=== PATIENT | female | born 1955 | race Caucasian/White ===

== ENCOUNTER 2021-04-24 20:57 | Inpatient (IN) | payer MEDICARE ==
[~2021-04-24] VITALS: Ht 162.6 cm; Wt 111.6 kg
[2021-04-24 20:59] VITALS: BP 110/57
[2021-04-24 22:09] LABS: CALCIUM 8.9 mg/dL (8.5-10.1); CREATININE 1.7 mg/dL (0.6-1.3); POTASSIUM 3.6 mmol/L (3.5-5.1)
[2021-04-24 22:13] LABS: MPV 8.3 fl. (7.2-11.1)
[2021-04-24 22:14] LABS: ALBUMIN 2.8 g/dL (3.4-5.0); MAGNESIUM 1.5 mg/dL (1.8-2.4); TOTAL BILIRUBIN 0.7 mg/dL (<0.1-1.0); TOTAL PROTEIN 6.5 g/dL (6.4-8.2)
[2021-04-24 22:15] LABS: HEMATOCRIT 34.1 % (37.0-47.0); HEMOGLOBIN 11.8 gm/dL (12.0-15.0); MCH 34.6 pg (26.0-34.0); MCHC 34.5 g/dL (28.0-37.0); MCV 100.2 fL (80.0-100.0); NUCLEATED RBCS 4 /100WBC; RDW-CV 19.5 % (10.5-14.5)
[2021-04-24 22:18] LABS: PLATELET COUNT* 45 thou/uL (150-400); WBC 0.6 thou/uL (4.0-11.0)
[2021-04-24 22:44] LABS: URINE BILIRUBIN NEGATIVE (Negative); URINE BLOOD 1+ (Negative); URINE CLARITY CLEAR; URINE COLOR YELLOW; URINE GLUCOSE-RANDOM 1+ (Negative); URINE KETONES NEGATIVE (Negative); URINE LEUKOCYTES-REFLEX NEGATIVE (Negative); URINE NITRITE-REFLEX NEGATIVE (Negative); URINE PROTEIN 2+ (Negative); URINE UROBILINOGEN 0.2 E.U./dl (0.2-1.0)
[2021-04-24 23:01] LABS: BACTERIA-REFLEX >30 Many /HPF (None Seen); TRANSITIONAL EPITHEL CELL 0-3 Few /LPF (None Seen); URINE WBC-REFLEX 6-15 Few /HPF (0-5)
[2021-04-24] MEDS ORDERED: ACYCLOVIR 200200 MG PO (23:02)
[2021-04-24 23:03] LABS: CASTS None Seen /LPF (None Seen); CRYSTALS None Seen /LPF (None Seen); MUCUS 0-3 Light strn/LPF (None Seen); SQUAMOUS >10 Many /LPF (0-3)
[2021-04-24] MEDS ORDERED: CENTRUM SILVER1 EAC6 PO (23:03)
[2021-04-24] MEDS ORDERED: VITAMIN B-121000 MC2 PO (23:03)
[2021-04-24] MEDS ORDERED: CARVEDILOL12.5 MG PO (23:03)
[2021-04-24] MEDS ORDERED: INQOVI 35 MG-11 EACH PO (23:04)
[2021-04-24] MEDS ORDERED: ZETIA10 MG PO (23:05)
[2021-04-24] MEDS ORDERED: FOLIC ACID1 MG PO (23:06)
[2021-04-24] MEDS ORDERED: NORCO 10-325 T1 EACH PO (23:06)
[2021-04-24] MEDS ORDERED: NEURONTIN 300M300 M2 PO (23:06)
[2021-04-24] MEDS ORDERED: BASAGLAR K100 UNIT/1 SUBQ (23:07)
[2021-04-24] MEDS ORDERED: JANUVIA25 MG PO (23:08)
[2021-04-24] MEDS ORDERED: LEVOFLOXACIN500 MG PO (23:08)
[2021-04-24] MEDS ORDERED: NITROSTAT0.4 M1 SUBLING (23:09)
[2021-04-24] MEDS ORDERED: LIDODERM1 EACH TRANSDERM (23:09)
[2021-04-24] MEDS ORDERED: RAYOS5 MG PO (23:10)
[2021-04-24] MEDS ORDERED: PROTONIX40 M2 PO (23:10)
[2021-04-24] MEDS ORDERED: COMPAZINE10 MG PO (23:10)
[2021-04-24] MEDS ORDERED: ONDANSETRON ODT8 MG PO (23:10)
[2021-04-24] MEDS ORDERED: VITAMIN D31250 MC1 PO (23:11)
[2021-04-24] MEDS ORDERED: CRESTOR40 MG PO (23:11)
[2021-04-25 03:38] VITALS: BP 97/30
[2021-04-25 03:45] LABS: ABSOLUTE LYMPHOCYTES 0.6 thou/uL (0.8-5.3); ATYPICAL LYMPHS 2 %; PLATELET ESTIMATE DECREASED
[2021-04-25 03:46] LABS: ANISOCYTOSIS Occasional; CLUMPED PLTS FEW; POIKILOCYTOSIS Occasional
[2021-04-25 07:00] VITALS: BP 88/52
[2021-04-25 11:00] VITALS: BP 125/51
--- NOTE | 2021-04-25 12:50 | EKG ---
[place] [address] ELECTROCARDIOGRAM REPORT Name: CHRISSY SONI Room: [place] [address] ADM IN ..#: [id number] Admission: 04/25/21 Attend Phys: Lisa Clay, Discharge: Date of : 53 Date of Service: 04/24/21 2146 Report #: [id number] THIS REPORT FOR: //name// [facility] ED Test Date: 2021-04-24 Test Time: 21:46:43 Pat Name: CHRISSY SONI Department: Room: [facility] Gender: F Consulting Intern: [place] : 1955 Requested By: Merle Gil Order Number: [id number] MD: Mark Polk Measurements Intervals Murphy Rate: 104 P: 30 SD: 166 QRS: 44 QRSD: 82 T: 18 QT: 331 QTc: 436 Interpretive Statements Sinus tachycardia Borderline T wave abnormalities No previous ECG available for comparison Electronically Signed On 04-25-2021 12:49:58 CDT by Mark Polk [email or web address] <ELECTRONICALLY SIGNED> By: Mark Polk MD, FACC 04/25/21 1249 2146 2146 Mark Polk MD, [facility] /EPI
[2021-04-25 15:00] VITALS: BP 110/46
[2021-04-25 18:45] VITALS: BP 131/55
--- NOTE | 2021-04-25 19:35 | NUR ---
PT'S DAUGHTER NAN CALLED ASKING FOR AN UPDATE. I EXPLAINED TO NAN THAT IT'S NOT WITHIN AN RN'S SCOPE OF PRACTICE TO DISCUSS SPECIFIC TEST RESULTS BUT I REITERATED THE PLAN OF CARE AND SHE WAS AGREEABLE. PT SPOKE WITH NAN BRIEFLY ON THE PHONE.
[2021-04-25 22:50] VITALS: BP 90/37
[2021-04-26] VITALS (7 sets, daily range): BP systolic 106–146; BP diastolic 47–91
[2021-04-26 05:33] LABS: BASOPHILS 1.3 %; EOSINOPHILS 0.8 %; HEMATOCRIT 26.4 % (37.0-47.0); LYMPHOCYTES 77.7 %; MCH 35.2 pg (26.0-34.0); MCHC 34.7 g/dL (28.0-37.0); MCV 101.5 fL (80.0-100.0); MONOCYTES 1.8 %; MPV 7.8 fl. (7.2-11.1); NUCLEATED RBCS 0 /100WBC; PLATELET COUNT* 104 thou/uL (150-400); POLYS 18.4 %; RDW-CV 19.6 % (10.5-14.5)
[2021-04-26 05:34] LABS: ABSOLUTE LYMPHOCYTES 1.2 thou/uL (0.8-5.3); ABSOLUTE NEUTROPHILS 0.3 thou/uL (1.6-8.1)
[2021-04-26 05:35] LABS: HEMOGLOBIN 9.2 gm/dL (12.0-15.0)
[2021-04-26 05:36] LABS: CALCIUM 7.6 mg/dL (8.5-10.1); CREATININE 1.7 mg/dL (0.6-1.3); POTASSIUM 3.7 mmol/L (3.5-5.1); WBC 1.6 thou/uL (4.0-11.0)
--- NOTE | 2021-04-26 16:04 | NUR ---
Pt is A&O. Resides at home with dtr. Independent. No DME. No hx of HH or SNF. Therapy evals ordered, planned HH vs SNF. Continue IVabx. Onc consulted. Anticipate dc in a few days.
--- NOTE | 2021-04-26 18:38 | NUR ---
RECEIVED REPORT AROUND 0715. ADMIT DONE IN CHART. VS STABLE. PT ABLE TO GET UP WITH ASSIST X1 WITH WALKER. IV INTACT RIGHT CHEST PORTACHATH. HEART MONITOR ATTACHED AT SR. MEDS GIVEN PER DEC. HOURLY ROUNDING PERFORMED. FAMILY VISTED THIS SHIFT. PAIN ONCE THIS SHIFT. PURWICK PUT IN PLACE PER PT REQUEST. CALL LIGHT WITH IN REACH. WILL CONTINUE TO MONITOR.
[2021-04-27 00:10] VITALS: BP 124/55
[2021-04-27 04:05] VITALS: BP 167/80
[2021-04-27 05:31] LABS: HEMATOCRIT 25.3 % (37.0-47.0); HEMOGLOBIN 8.8 gm/dL (12.0-15.0); MCH 34.9 pg (26.0-34.0); MCHC 34.8 g/dL (28.0-37.0); MCV 100.5 fL (80.0-100.0); MPV 8.4 fl. (7.2-11.1); RBC 2.52 mil/uL (4.20-5.00); RDW-CV 19.5 % (10.5-14.5)
[2021-04-27 05:50] LABS: CALCIUM 8.1 mg/dL (8.5-10.1); CREATININE 1.4 mg/dL (0.6-1.3); POTASSIUM 3.3 mmol/L (3.5-5.1)
[2021-04-27 06:24] LABS: WBC 1.9 thou/uL (4.0-11.0)
[2021-04-27 09:31] VITALS: BP 113/59
[2021-04-27 11:59] VITALS: BP 121/68
[2021-04-27 12:11] VITALS: BP 121/68
--- NOTE | 2021-04-27 12:13 | NUR ---
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 COMPA ABARCAT
--- NOTE | 2021-04-27 12:18 | NUR ---
Pt discharging to home today. Faxed HH referral to [facility] per Pt's request.
[2021-04-27 13:54] VITALS: BP 121/68
--- NOTE | 2021-04-28 11:18 | CON ---
[address] [address] CONSULTATION Name: CHRISSY SONI Room: [address]R.#: [id number] Admission: 04/25/21 Attend Phys: Lisa Clay MD Discharge: 04/27/21 Date of : 53 Report #: [id number] THIS REPORT FOR: cc: ADDIE PATRICIA MD, CHADWICK MD Elia, Manana MD ~ DATE OF CONSULTATION: 04/26/2021 REQUESTING PHYSICIAN: Dr. Clay. REASON FOR CONSULTATION: Pancytopenia. HISTORY OF PRESENT ILLNESS: The patient is a pleasant 65-year-old lady who is undergoing chemotherapy for MDS at [facility]. The patient presented to the hospital with extreme weakness. She had chemotherapy 2 weeks ago, she is not sure what type. She is found to have UTI, neutropenia. Hematology consult is requested. She is on antibiotic. She is feeling better today. She does not have fever or chills. Denies flank pain. PAST MEDICAL HISTORY: Significant for MDS undergoing chemotherapy, the patient is not sure what type; history of hypertension, diabetes mellitus, coronary artery disease. FAMILY HISTORY: Noncontributory. SOCIAL HISTORY: She does not smoke, does not drink alcohol excessively. REVIEW OF SYSTEMS: Denies nausea, vomiting, diarrhea. Denies headaches, dizziness. Denies tingling, numbness. Denies rash. PHYSICAL EXAMINATION: GENERAL: Reveals obese woman, not in acute distress. VITAL SIGNS: Blood pressure 125/51, heart rate 75, temperature 98.8, respirations 18. HEENT: Does not reveal thrush. HEART: Normal S1, S2. LUNGS: Decreased breath sounds anteriorly. ABDOMEN: Obese. EXTREMITIES: Moves all extremities. SKIN: No rash, no bruising. There is no supraclavicular lymphadenopathy. MENTAL STATUS: Alert, oriented x 3. LABORATORY AND DIAGNOSTIC DATA: White count 1.6, hemoglobin 9.2, platelets 104, absolute neutrophil count 0.3. Urinalysis shows increased wbc's, bacteria. Chest x-ray reviewed. CT of abdomen and [place] [address] CONSULTATION Name: CHRISSY SONI Room: [address]#: [id number] Admission: 04/25/21 Attend Phys: Lisa Clay MD Discharge: 04/27/21 Date of : 53 Report #: [id number] ASSESSMENT AND PLAN: 1. Pancytopenia secondary to myelodysplastic syndrome and recent chemotherapy. 2. Neutropenia. Agree with management. Continue antibiotics. Continue to monitor WBC. 3. Anemia, mild. No transfusions is necessary. 4. Pyelonephritis. Defer management to hospitalist. Thank you very much for allowing me to participate in care of this patient. I will follow the patient with you. <ELECTRONICALLY SIGNED> By: Ilya Lawrence MD 04/28/21 1118 2215 [id number] Lawrence MD /nt
== END 2021-04-27 15:09 | disposition home health service (06) | DRG 314 ==
LOC: M.ERS 20:57 → M.2W 04-25 00:41 → M.TBA-ER 04-25 00:41 → M.2W 04-26 07:15
PROVIDERS: Family Medicine; Internal Medicine; Personal Emergency Response Attendant; ADMIT Internal Medicine; ATTEND Internal Medicine
DX: I95.9 Hypotension, unspecified (principal); D61.810 Antineoplastic chemotherapy induced pancytopenia; N17.0 Acute kidney failure with tubular necrosis; E87.2 Acidosis; N12 Tubulo-interstitial nephritis, not specified as acute or chronic; Z68.41 Body mass index [BMI] 40.0-44.9, adult; D46.9 Myelodysplastic syndrome, unspecified; N18.9 Chronic kidney disease, unspecified; M19.90 Unspecified osteoarthritis, unspecified site; E66.9 Obesity, unspecified; E11.22 Type 2 diabetes mellitus with diabetic chronic kidney disease; D69.6 Thrombocytopenia, unspecified; T45.1X5A Adverse effect of antineoplastic and immunosuppressive drugs, initial encounter; D70.1 Agranulocytosis secondary to cancer chemotherapy; I25.10 Atherosclerotic heart disease of native coronary artery without angina pectoris; Z20.822 Contact with and (suspected) exposure to COVID-19; Z79.899 Other long term (current) drug therapy; Z79.4 Long term (current) use of insulin; Z92.21 Personal history of antineoplastic chemotherapy; Z88.0 Allergy status to penicillin; Y92.89 Other specified places as the place of occurrence of the external cause; I25.2 Old myocardial infarction; Z95.5 Presence of coronary angioplasty implant and graft